=== PATIENT | male | born 1965 | race Asian ===

== ENCOUNTER 2022-06-09 10:08 | Outpatient (CLI) | payer OTHER | END 2022-06-09 20:12 | disposition home or self-care (01) | LOC: CT 10:08 | PROVIDERS: ATTEND Family Medicine | DX: S06.0X9A Concussion with loss of consciousness of unspecified duration, initial encounter (principal); G44.309 Post-traumatic headache, unspecified, not intractable; R09.1 Pleurisy; R07.89 Other chest pain; Y92.89 Other specified places as the place of occurrence of the external cause ==